=== PATIENT | female | born 1990 | race Two or more races ===

== ENCOUNTER 2024-09-16 10:25 | Emergency (ER) | payer BC, SELFPAY ==
[2024-09-16 10:29] VITALS: BP 145/87
[2024-09-16 12:36] LABS: Hematocrit 34.8 % (37.0-47.0); Hemoglobin 12.2 g/dL (12.0-16.0); Mean Corp Hgb Conc. 35.1 g/dL (33.0-37.0); Mean Corpuscular Volume 86.4 fL (81.0-99.0); Nucleated Red Blood Cells % 0 %; Platelet Count 315 10^3/uL (130-400); Red Cell Dist. Width 12.9 % (11.5-14.5)
[2024-09-16 12:59] LABS: HCG, Serum Qualitative Screen Negative
[2024-09-16 13:03] LABS: ALT (SGPT) 13 U/L (0-35); AST (SGOT) 21 U/L (14-36); Albumin 4.9 g/dl (3.5-5.0); Alkaline Phosphatase 59 U/L (38-126); Blood Urea Nitrogen 6 mg/dl (7-17); Calcium 10.1 mg/dl (8.4-10.2); Carbon Dioxide 24 mmol/L (22-30); Chloride 107 mmol/L (98-107); Glucose 86 mg/dl (70-99); Potassium 4.2 mmol/L (3.5-5.1); Sodium 140 mmol/L (135-145); Total Protein 7.8 g/dl (6.3-8.2); eGFR > 60.00
[2024-09-16 14:53] VITALS: BP 115/84
[2024-09-16 14:55] VITALS: BMI 21.8
[2024-09-16] MEDS: CYKLOKAPRON 1300 MG PO (15:13)
--- NOTE | 2024-09-16 15:49 | ED.GENMED ---
History of Present Illness
General
Chief Complaint: Vaginal Bleeding
Source: patient
Exam Limitations: none
Time Seen by Provider: 09/16/24 10:58
Nursing documentation reviewed up to this point in time: agreed with
History of Present Illness
History of Present Illness:
33 y/o F
hypothyroid
here with vag bleeding x 10 days
started menses off slowly, dark blood
then redder blood but now the past 2 days heavier when she stands or goes to the Bathroom, with small clots
no signficiatn pain
no ho enamia
on 25 mcg synthryoid but wednesday takes 50mcg
took hcg test which was neg
is a doctor
pt has not had gyne eval
Past History
Past History
ED Past Medical History: Hypothyroidism
ED Past Surgical History: None
Social History
Tobacco: Non-smoker
Alcohol: None
Drug: None
Personal:
Living: with family
Review of Systems
Review of Systems
Allergies reviewed?: Yes
All Other Systems: Not applicable
Phy Exam
Physical Exam
Physical Exam:
GENERAL: Alert , in no apparent distress
EYE: pupils equal and reactive
NECK: Supple
ENT: o/p clr, mmm.
CARDIAC: Regular rate and rhythm .
LUNGS: Clear breath sounds bilaterally, no acute respiratory distress, no wheezes/rales/rhonchi
ABDOMEN: Soft, without focal tenderness, no r/g, no cvat, normal bowel sounds
gu: mod blood in vautl; no significant clots; nontedner exam
NEUROLOGICAL: Alert and oriented, no focal neuro deficits
SKIN: Warm and dry, skin intact.
MUSCULOSKELETAL: No edema, well perfused. neg ole's sign
PSYCH: Normal and appropriate interaction.
Course
Orders/Labs/Results
Orders:
Orders
09/16/24 10:59
Test Result ONCE
09/16/24 11:39
US Pelvis W Transvag Combined Urgent
Reason For Exam: menorrhagia
09/16/24 12:22
Complete Blood Count/With Diff Urgent
Comprehensive Metabolic Panel Urgent
Free T4 Urgent
HCG, Serum Qualitative Screen Urgent
TSH Reflex To Free T4 Urgent
09/16/24 15:04
Tranexamic Acid [Cyklokapron] 1,300 mg PO NOW STA
Abnormal Lab Results
09/16/24
12:22
RBC 4.03 L 10^6/uL
(4.20-5.40)
Hct 34.8 L %
(37.0-47.0)
Lymphocytes % 19.1 L %
(20.5-51.1)
BUN 6 L mg/dl
(7-17)
TSH (Reflex) 33.80 H uIU/ml
(0.47-4.68)
Free T4 0.63 L ng/dl
(0.78-2.19)
09/16/24 12:22
09/16/24 12:22
Vital Signs
Initial and Last Documented VS:
Initial Vital Signs
Temp Pulse Resp BP Pulse Ox
36.9 C 79 20 145/87 100
09/16/24 10:29 09/16/24 10:29 09/16/24 10:29 09/16/24 10:29 09/16/24 10:29
Last Documented Vital Signs
Temp Pulse Resp BP Pulse Ox
36.9 C 74 18 115/84 100
09/16/24 10:29 09/16/24 14:53 09/16/24 14:53 09/16/24 14:53 09/16/24 14:53
MDM/Problems Addressed
Differential Diagnosis Includes:
menorrhagia, loss, hypothyroid
MDM/Problems Addressed:
33 y/o F with heavy menses
hcg neg
no signficiant presyncoapal symptoms
no significant pain
no h/o heavy periods beofre
hcg neg
vitals stable
blood invault
hg 12
tsh 33, t4 0.6
us neg
pt has been stable
d/w dr. madrid recommended TXA
also inc thyroid dose
i spoke withh her who is a physician
*Pulse Oximetry
SaO2: 100
Oxygen Mode of Delivery: Room air
Patient hypoxic: no (100)
*Critical Care Note
Total Time (30-74mins, 75-104mins- exclusive of procedures): Not Applicable
ED Attending Note
-
Portions of this chart may have been created with voice recognition software.� Occasional wrong word or��sound alike� substitutions may have occurred due to the inherent limitations of voice recognition software.
Discharge Plan
Departure
Patient Disposition: Home (Routine Discharge)
Date of Disposition: 09/16/24
Time of Disposition: 15:05
Patient with high blood pressure during this ER visit?: No
Condition: Fair
Covid-19: Not Applicable
Discharge Problem:
Hypothyroid, Menorrhagia
Instructions: Heavy Periods (DC)
Prescriptions:
New
tranexamic acid 650 mg tablet
1,300 mg PO TID 5 Days Qty: 30 0RF
levothyroxine 37.5 mcg capsule
37.5 mcg PO DAILY Qty: 30 0RF
Referrals:
Parisa Madrid MD [Active, Gynecology] - Follow up in 2-3 days
NONE,* [Family Provider, Internal Medicine]
Activity Restrictions/Additional Instructions:
YOUR BLOOD WORK SHOWS YOUR THYROID IS UNDERACTIVE
GO UP TO SYNTHROID 37.5 MCG DAILY
PLEASE FOLLOW U PIN 6 WEEKS FOR RECHECK
for now take TXA 2 pills 3 times a day for UP TO 5 DAYS
stop if your bleeding stops
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
RETURN FOR: PASSING OUT, SEVERE BLEEDING (MORE THAN 1 PAD PER HOUR FOR 2HOURS IN A ROW), SEVERE PAIN OR ANY CONCERNS.
Interventions
Interventions:
*Risk Screen - Suicide Last Done: 09/16/24 10:29
*General Assessment Last Done: 09/16/24 10:29
*Neglect/Abuse Screening Last Done: 09/16/24 14:54
*ED- Fall Risk Assessment Last Done: 09/16/24 15:19
*ED COVID-19 Vaccine History Last Done: 09/16/24 14:54
*Nursing Disposition Last Done: 09/16/24 15:19
ED-Female Genitourinary Assessment Last Done: 09/16/24 12:00
Discharge Date and Time
Discharge Date/Time: 09/16/24 15:21
Print Language: IRISH
== END 2024-09-16 15:21 | disposition home or self-care (01) ==
LOC: EMR 10:25
PROVIDERS: Physician Assistant; EMERGENCY PHYSICIAN Emergency Medicine
DX: E03.9 Hypothyroidism, unspecified (principal); N92.0 Excessive and frequent menstruation with regular cycle
CPT/HCPCS: 99284; 76830; 76856; 80053; 84439; 84443; 84703; 85025